=== PATIENT | female | born 1975 | race Caucasian/White ===

== ENCOUNTER 2016-07-31 20:47 | Emergency (ER) | payer OTHER ==
[~2016-07-31] VITALS: Ht 170.2 cm; Wt 115.5 kg
[~2016-07-31 20:47] MED LIST: BACTRIM,SEPT1 TABLET PO; CHILDREN'S CLEA10 MG; CLONAZEPAM0.5 MG PO; EFFEXOR75 MG; FAMOTIDINE20 MG PO; FENOFIBRATE54 M1; LEXAPRO10 MG PO; MELOXICAM15 MG PO; METRONIDAZOLE500 MG PO; MOBIC15 MG PO; MOBIC7.5 MG PO; MOTRIN800 MG PO; NAPROSYN500 MG PO; NOHOMEMEDS; NORCO 5/3251 TABLET PO; NORCO 7.5/321 TABLET PO; PEPCID40 MG PO; PREDNISONE20 MG PO; ULTRAM50 MG PO; VITAMIN B SHOT; [UNRECOGNIZED DRUG - OTHER]
[2016-07-31 21:43] LABS: HEMATOCRIT 42.5 % (36.0-46.0); MCHC 32.9 G/DL (30.0-36.0); MCV 88.2 FL (83-99); MEAN PLAT.VOLUME 10.4 uM^3 (9.5-12.4); PLATELET COUNT 300 K/uL (156-360); RBC DIS.WIDTH-CV 12.6 % (11.8-14.6); RBC DIS.WIDTH-SD 40.7 % (39-53); RED BLOOD COUNT 4.82 M/uL (3.80-5.20); WHITE BLOOD COUNT 12.9 K/uL (4.1-10.2)
[2016-07-31 21:51] LABS: CHLORIDE 112 mEq/L (99-109); POTASSIUM 3.4 mEq/L (3.7-5.4); SODIUM 144 mEq/L (136-147)
[2016-07-31 21:53] LABS: GLUCOSE 101 mg/dL (70-99)
[2016-07-31 21:54] LABS: ANION GAP 10 MEQ/L (2-14)
[2016-07-31 21:57] LABS: GFR ESTIMATE (CALCULATED) > 59 mL/min/
[2016-07-31 21:58] LABS: UREA NITROGEN (BUN) 13 mg/dL (9-23)
[2016-07-31 21:59] LABS: D-DIMER ELISA 0.33 mg/L FEU (< 0.57)
[2016-07-31 22:05] LABS: TROP-I INTERPRETATION NEGATIVE; TROPONIN-I < 0.01 ng/mL (0.0-0.30)
[2016-07-31 22:07] LABS: QUANTITATIVE HCG < 4.0 MIU/ML
[2016-08-01 00:18] LABS: TROP-I INTERPRETATION NEGATIVE; TROPONIN-I < 0.01 ng/mL (0.0-0.30)
[2016-08-01 01:00] VITALS: BP 119/86
== END 2016-08-01 01:02 | disposition home or self-care (01) ==
LOC: EME 20:47
PROVIDERS: Emergency Medicine
DX: R07.9 Chest pain, unspecified (principal); F43.9 Reaction to severe stress, unspecified; R55 Syncope and collapse
CPT/HCPCS: 71010; 80048; 84484; 84702; 85027; 85379; 93005; 99281; 99285; J1885; Q0177

== ENCOUNTER 2017-01-28 16:42 | Emergency (ER) | payer OTHER ==
[~2017-01-28] VITALS: Ht 170.2 cm; Wt 116.4 kg
[2017-01-28 17:27] LABS: BASOPHIL COUNT 0.1 K/uL (0-0.1); EOSINOPHIL (%) 2.4 % (0-5); EOSINOPHIL COUNT 0.3 K/uL (0-0.3); IMMATURE GRANULOCYTE (%) 1.5 % (0.0-0.7); IMMATURE GRANULOCYTE COUNT 0.2 K/uL; INSTRUMENT ABS NEUTROPHIL CT 9.4 K/uL; MCH 29.5 PG (29.0-34.0); MCHC 33.2 G/DL (30.0-36.0); MCV 88.9 FL (83-99); MEAN PLAT.VOLUME 9.3 uM^3 (9.5-12.4); MONOCYTE (%) 6.5 % (3-12); MONOCYTE COUNT 0.9 K/uL (0-0.8); NEUTROPHIL (%) 67.6 % (45-76); NEUTROPHIL COUNT 9.4 K/uL (1.8-6.4); PLATELET COUNT 293 K/uL (156-360); RBC DIS.WIDTH-CV 12.1 % (11.8-14.6); RBC DIS.WIDTH-SD 39.2 % (39-53); RED BLOOD COUNT 4.61 M/uL (3.80-5.20); WHITE BLOOD COUNT 13.9 K/uL (4.1-10.2)
[2017-01-28 17:41] LABS: CHLORIDE 106 mEq/L (99-109); POTASSIUM 4.7 mEq/L (3.7-5.4); SODIUM 138 mEq/L (136-147)
[2017-01-28 17:43] LABS: GLUCOSE 94 mg/dL (70-99)
[2017-01-28 17:45] LABS: ANION GAP 5 MEQ/L (2-14); TOTAL BILIRUBIN 0.2 mg/dL (0.0-1.0)
[2017-01-28 17:47] LABS: ALKALINE PHOSPHATASE 74 IU/L (3-129); GFR ESTIMATE (CALCULATED) > 59 mL/min/
[2017-01-28 17:48] LABS: UREA NITROGEN (BUN) 11 mg/dL (9-23)
[2017-01-28 17:51] LABS: LIPASE 15 U/L (1.0-51.0)
[2017-01-28 17:59] LABS: QUANTITATIVE HCG < 4.0 MIU/ML
[2017-01-28 18:03] LABS: ADD MIUA? YES; BILIRUBIN NEGATIVE; BLOOD SMALL; COLOR YELLOW ((YELLOW)); GLUCOSE (STRIP) NEGATIVE; KETONES NEGATIVE; LEUKOCYTES NEGATIVE; NITRITE NEGATIVE; PROTEIN (STRIP) NEGATIVE; SPECIFIC GRAVITY 1.019 (1.000-1.030); UROBILINOGEN 0.2 MG/DL (0.2-1.0)
[2017-01-28 18:08] LABS: BACTERIA RARE /HPF; EPITHELIAL CELLS RARE /HPF; MUCUS TRACE /LPF; RED BLOOD CELLS 0-5 /HPF (0-5); WHITE BLOOD CELLS 0-5 /HPF (0-5)
[2017-01-28] MEDS ORDERED: ZOFRAN ODT4 MG PO (21:02)
[2017-01-28] MEDS ORDERED: CITRATE OF MAG296 ML PO (21:02)
[2017-01-28] MEDS ORDERED: BENTYL20 MG PO (21:02)
[2017-01-28 21:31] VITALS: BP 116/79
== END 2017-01-28 21:31 | disposition home or self-care (01) ==
LOC: EME 16:42
PROVIDERS: Physician Assistant
DX: R10.31 Right lower quadrant pain (principal); R10.2 Pelvic and perineal pain; R11.0 Nausea; K76.0 Fatty (change of) liver, not elsewhere classified; Z90.49 Acquired absence of other specified parts of digestive tract; Z98.51 Tubal ligation status
CPT/HCPCS: 74176; 76856; 80053; 81003; 83690; 84702; 85025; 99281; 99284

== ENCOUNTER 2017-02-13 04:20 | Emergency (ER) | payer OTHER ==
[~2017-02-13] VITALS: Ht 170.2 cm; Wt 115.1 kg
[~2017-02-13 04:20] MED LIST changes: +BENTYL20 MG PO; +CITRATE OF MAG296 ML PO; +ZOFRAN ODT4 MG PO
[2017-02-13 05:41] LABS: HEMATOCRIT 40.9 % (36.0-46.0); MCH 29.5 PG (29.0-34.0); MCHC 32.8 G/DL (30.0-36.0); MCV 89.9 FL (83-99); MEAN PLAT.VOLUME 9.9 uM^3 (9.5-12.4); PLATELET COUNT 312 K/uL (156-360); RBC DIS.WIDTH-CV 12.4 % (11.8-14.6); RBC DIS.WIDTH-SD 40.8 % (39-53); RED BLOOD COUNT 4.55 M/uL (3.80-5.20); WHITE BLOOD COUNT 17.8 K/uL (4.1-10.2)
[2017-02-13 05:47] LABS: CHLORIDE 106 mEq/L (99-109); POTASSIUM 3.6 mEq/L (3.7-5.4); SODIUM 141 mEq/L (136-147)
[2017-02-13 05:50] LABS: GLUCOSE 104 mg/dL (70-99)
[2017-02-13 05:51] LABS: ANION GAP 10 MEQ/L (2-14); TROP-I INTERPRETATION NEGATIVE; TROPONIN-I < 0.01 ng/mL (0.0-0.30)
[2017-02-13 05:52] LABS: TOTAL BILIRUBIN 0.3 mg/dL (0.0-1.0)
[2017-02-13 05:53] LABS: ALKALINE PHOSPHATASE 72 IU/L (3-129); GFR ESTIMATE (CALCULATED) > 59 mL/min/
[2017-02-13 05:54] LABS: UREA NITROGEN (BUN) 18 mg/dL (9-23)
[2017-02-13 05:57] LABS: LIPASE 13 U/L (1.0-51.0)
[2017-02-13] MEDS ORDERED: MAALOX ADVANCE355 ML PO (06:04)
[2017-02-13] MEDS ORDERED: ORAMAGIC PLUS210 ML MM (06:04)
[2017-02-13 06:22] VITALS: BP 130/108
== END 2017-02-13 06:22 | disposition home or self-care (01) ==
LOC: EME 04:20
PROVIDERS: Emergency Medicine
DX: R07.89 Other chest pain (principal); K21.0 Gastro-esophageal reflux disease with esophagitis; K29.00 Acute gastritis without bleeding; D72.829 Elevated white blood cell count, unspecified; T38.0X5A Adverse effect of glucocorticoids and synthetic analogues, initial encounter; J45.909 Unspecified asthma, uncomplicated; Z90.49 Acquired absence of other specified parts of digestive tract; Z88.8 Allergy status to other drugs, medicaments and biological substances; Z91.040 Latex allergy status
CPT/HCPCS: 71020; 80053; 83690; 84484; 85027; 93005; 99281; 99284

== ENCOUNTER 2017-03-07 01:22 | Emergency (ER) | payer OTHER ==
[~2017-03-07] VITALS: Ht 170.2 cm; Wt 117.1 kg
[~2017-03-07 01:22] MED LIST changes: +MAALOX ADVANCE355 ML PO; +ORAMAGIC PLUS210 ML MM
[2017-03-07 01:38] LABS: HEMATOCRIT 36.7 % (36.0-46.0); MCH 29.8 PG (29.0-34.0); MCHC 33.5 G/DL (30.0-36.0); MCV 88.9 FL (83-99); MEAN PLAT.VOLUME 9.8 uM^3 (9.5-12.4); PLATELET COUNT 270 K/uL (156-360); RBC DIS.WIDTH-CV 12.3 % (11.8-14.6); RBC DIS.WIDTH-SD 39.8 % (39-53); RED BLOOD COUNT 4.13 M/uL (3.80-5.20); WHITE BLOOD COUNT 9.4 K/uL (4.1-10.2)
[2017-03-07 01:48] LABS: CHLORIDE 107 mEq/L (99-109); SODIUM 140 mEq/L (136-147)
[2017-03-07 01:50] LABS: GLUCOSE 116 mg/dL (70-99)
[2017-03-07 01:51] LABS: ANION GAP 7 MEQ/L (2-14); D-DIMER ELISA < 150.00 ng/mLDDU (<230)
[2017-03-07 01:54] LABS: GFR ESTIMATE (CALCULATED) > 59 mL/min/
[2017-03-07 01:55] LABS: UREA NITROGEN (BUN) 11 mg/dL (9-23)
[2017-03-07 01:59] LABS: TROP-I INTERPRETATION NEGATIVE; TROPONIN-I < 0.01 ng/mL (0.0-0.30)
[2017-03-07 04:35] LABS: TROP-I INTERPRETATION NEGATIVE; TROPONIN-I < 0.01 ng/mL (0.0-0.30)
[2017-03-07 04:57] VITALS: BP 128/76
== END 2017-03-07 04:57 | disposition home or self-care (01) ==
LOC: EME 01:22
PROVIDERS: Emergency Medicine
DX: R07.89 Other chest pain (principal); Z73.3 Stress, not elsewhere classified
CPT/HCPCS: 71020; 80048; 84484; 85027; 85379; 93005; 99281; 99285

== ENCOUNTER 2017-04-05 22:24 | Emergency (ER) | payer OTHER ==
[~2017-04-05] VITALS: Ht 170.2 cm; Wt 119.8 kg
[2017-04-05 23:07] LABS: HEMATOCRIT 38.7 % (36.0-46.0); MCH 29.6 PG (29.0-34.0); MCHC 33.1 G/DL (30.0-36.0); MCV 89.6 FL (83-99); MEAN PLAT.VOLUME 9.9 uM^3 (9.5-12.4); PLATELET COUNT 291 K/uL (156-360); RBC DIS.WIDTH-CV 12.2 % (11.8-14.6); RBC DIS.WIDTH-SD 40.3 % (39-53); RED BLOOD COUNT 4.32 M/uL (3.80-5.20); WHITE BLOOD COUNT 11.6 K/uL (4.1-10.2)
[2017-04-05 23:22] LABS: CHLORIDE 108 mEq/L (99-109); POTASSIUM 3.9 mEq/L (3.7-5.4); SODIUM 142 mEq/L (136-147)
[2017-04-05 23:24] LABS: GLUCOSE 90 mg/dL (70-99)
[2017-04-05 23:25] LABS: ANION GAP 8 MEQ/L (2-14)
[2017-04-05 23:28] LABS: GFR ESTIMATE (CALCULATED) > 59 mL/min/
[2017-04-05 23:29] LABS: UREA NITROGEN (BUN) 10 mg/dL (9-23)
[2017-04-05 23:30] LABS: TROP-I INTERPRETATION NEGATIVE; TROPONIN-I < 0.01 ng/mL (0.0-0.30)
[2017-04-06] MEDS ORDERED: FLONASE16 G1 BOTH NARES (01:10)
[2017-04-06 01:26] VITALS: BP 132/70
== END 2017-04-06 01:27 | disposition home or self-care (01) ==
LOC: EME 22:24
DX: J06.9 Acute upper respiratory infection, unspecified (principal); J32.9 Chronic sinusitis, unspecified; J45.909 Unspecified asthma, uncomplicated; K21.9 Gastro-esophageal reflux disease without esophagitis; F43.10 Post-traumatic stress disorder, unspecified; M10.9 Gout, unspecified; Z88.8 Allergy status to other drugs, medicaments and biological substances
CPT/HCPCS: 71020; 80048; 84484; 85027; 93005; 99281; 99284

== ENCOUNTER 2017-06-18 23:49 | Emergency (ER) | payer BC, OTHER ==
[~2017-06-18] VITALS: Ht 170.2 cm; Wt 117.8 kg
[~2017-06-18 23:49] MED LIST changes: +FLONASE16 G1 BOTH NARES
[2017-06-19 00:35] LABS: HEMATOCRIT 37.1 % (36.0-46.0); HEMOGLOBIN 12.6 G/DL (11.9-15.5); MCH 29.9 PG (29.0-34.0); MCV 87.9 FL (83-99); PLATELET COUNT 260 K/uL (156-360); RBC DIS.WIDTH-CV 12.4 % (11.8-14.6); RBC DIS.WIDTH-SD 39.7 % (39-53); RED BLOOD COUNT 4.22 M/uL (3.80-5.20); WHITE BLOOD COUNT 9.2 K/uL (4.1-10.2)
[2017-06-19 00:43] LABS: CHLORIDE 105 mEq/L (99-109); POTASSIUM 3.7 mEq/L (3.7-5.4); SODIUM 141 mEq/L (136-147)
[2017-06-19 00:45] LABS: GLUCOSE 109 mg/dL (70-99)
[2017-06-19 00:49] LABS: CREATININE 0.8 mg/dL (0.6-1.3); GFR ESTIMATE (CALCULATED) > 59 mL/min/
[2017-06-19 00:50] LABS: UREA NITROGEN (BUN) 8 mg/dL (9-23)
[2017-06-19 00:56] LABS: TROP-I INTERPRETATION NEGATIVE; TROPONIN-I < 0.01 ng/mL (0.0-0.30)
[2017-06-19 04:15] LABS: D-DIMER ELISA < 150.00 ng/mLDDU (<230)
[2017-06-19 04:27] LABS: TROP-I INTERPRETATION NEGATIVE; TROPONIN-I < 0.01 ng/mL (0.0-0.30)
[2017-06-19 05:15] VITALS: BP 135/76
== END 2017-06-19 05:16 | disposition home or self-care (01) ==
LOC: EME 23:49
PROVIDERS: Emergency Medicine
DX: R07.9 Chest pain, unspecified (principal); M25.512 Pain in left shoulder; Z90.49 Acquired absence of other specified parts of digestive tract
CPT/HCPCS: 71046; 80048; 84484; 85027; 85379; 93005; 99281; 99283

== ENCOUNTER 2017-07-06 23:32 | Emergency (ER) | payer OTHER ==
[~2017-07-06] VITALS: Ht 170.2 cm; Wt 117.2 kg
[2017-07-07 00:10] LABS: HEMATOCRIT 37.1 % (36.0-46.0); HEMOGLOBIN 12.4 G/DL (11.9-15.5); MCH 29.6 PG (29.0-34.0); MCHC 33.4 G/DL (30.0-36.0); MCV 88.5 FL (83-99); PLATELET COUNT 268 K/uL (156-360); RBC DIS.WIDTH-CV 12.7 % (11.8-14.6); RBC DIS.WIDTH-SD 41.1 % (39-53); RED BLOOD COUNT 4.19 M/uL (3.80-5.20); WHITE BLOOD COUNT 10.8 K/uL (4.1-10.2)
[2017-07-07 00:19] LABS: CHLORIDE 108 mEq/L (99-109); POTASSIUM 3.8 mEq/L (3.7-5.4); SODIUM 141 mEq/L (136-147)
[2017-07-07 00:21] LABS: GLUCOSE 107 mg/dL (70-99)
[2017-07-07 00:25] LABS: CREATININE 0.8 mg/dL (0.6-1.3); GFR ESTIMATE (CALCULATED) > 59 mL/min/
[2017-07-07 00:26] LABS: UREA NITROGEN (BUN) 12 mg/dL (9-23)
[2017-07-07 00:31] LABS: TROP-I INTERPRETATION NEGATIVE; TROPONIN-I < 0.01 ng/mL (0.0-0.30)
[2017-07-07 02:16] VITALS: BP 117/69
== END 2017-07-07 02:19 | disposition home or self-care (01) ==
LOC: EME 23:32
DX: R00.2 Palpitations (principal); R42 Dizziness and giddiness; R07.9 Chest pain, unspecified; T41.3X5A Adverse effect of local anesthetics, initial encounter; K21.9 Gastro-esophageal reflux disease without esophagitis; J45.909 Unspecified asthma, uncomplicated; M10.9 Gout, unspecified; F43.10 Post-traumatic stress disorder, unspecified; Z91.040 Latex allergy status
CPT/HCPCS: 71046; 80048; 84484; 85027; 93005; 99281; 99284

== ENCOUNTER 2017-10-10 23:40 | Emergency (ER) | payer OTHER ==
[~2017-10-10] VITALS: Ht 170.2 cm; Wt 114.0 kg
[2017-10-11 01:40] LABS: HEMOGLOBIN 12.9 G/DL (11.9-15.5); MCHC 33.9 G/DL (30.0-36.0); MCV 88.4 FL (83-99); PLATELET COUNT 259 K/uL (156-360); RBC DIS.WIDTH-CV 13.1 % (11.8-14.6); RBC DIS.WIDTH-SD 42.5 % (39-53); WHITE BLOOD COUNT 13.7 K/uL (4.1-10.2)
[2017-10-11 01:48] LABS: ALBUMIN 4.2 g/dL (3.2-4.8)
[2017-10-11 01:49] LABS: CHLORIDE 105 mEq/L (99-109); SODIUM 138 mEq/L (136-147)
[2017-10-11 01:51] LABS: GLUCOSE 84 mg/dL (70-99); TOTAL PROTEIN 6.8 g/dL (6.4-8.3)
[2017-10-11 01:53] LABS: TOTAL BILIRUBIN 0.5 mg/dL (0.0-1.0)
[2017-10-11 01:54] LABS: ALKALINE PHOSPHATASE 63 IU/L (3-129)
[2017-10-11 01:55] LABS: CREATININE 0.9 mg/dL (0.6-1.3); GFR ESTIMATE (CALCULATED) > 59 mL/min/
[2017-10-11 01:56] LABS: AST (GOT) 18 IU/L (2-34); DIRECT BILIRUBIN 0.2 mg/dL (0.0-0.3); UREA NITROGEN (BUN) 17 mg/dL (9-23)
[2017-10-11 01:58] LABS: ALT (GPT) 25 IU/L (3-49)
[2017-10-11] MEDS ORDERED: COLCHICINE0.6 M1 PO (01:58)
[2017-10-11] MEDS ORDERED: PREDNISONE20 MG PO (01:58)
[2017-10-11] MEDS ORDERED: MOTRIN800 MG PO (02:04)
[2017-10-11 02:37] VITALS: BP 145/81
[2017-10-11 10:24] LABS: LYME DISEASE SEROLOGY SCREEN NEGATIVE (NEGATIVE)
== END 2017-10-11 02:37 | disposition home or self-care (01) ==
LOC: EME 23:40
PROVIDERS: Physician Assistant
DX: M10.9 Gout, unspecified (principal); Z91.040 Latex allergy status; Z88.8 Allergy status to other drugs, medicaments and biological substances
CPT/HCPCS: 73610; 80048; 80076; 84550; 85027; 86618; 99281; 99283; J7512